=== PATIENT | female | born 1950 | race Caucasian/White ===

== ENCOUNTER → 2024-05-01 14:22 | Outpatient (REF) | payer OTHER, SELFPAY | LOC: RAD 14:22 | PROVIDERS: ATTENDING PHYSICIAN Nurse Practitioner Family | DX: M81.0 Age-related osteoporosis without current pathological fracture (principal) | CPT/HCPCS: 77080 ==

== ENCOUNTER 2024-08-18 08:29 | Emergency (ER) | payer OTHER, SELFPAY ==
--- NOTE | 2024-08-18 09:41 | ED.SKININJ ---
HPI-Injury
General
Chief Complaint: Bite
Source: patient
Time Seen by Provider: 08/18/24 09:35
History of Present Illness-Injury
Initial Injury comments:
74-year-old female presenting to the emergency department for evaluation after she was bit on the right wrist by her cat yesterday evening around 7 PM, had some mild bleeding which was controlled with light pressure and states clean the wound with a
hibclens. Patient states this morning she had a little bit of increased redness around the area where the bite took place and some discomfort. Patient states cats vaccinations are all up-to-date but she is unsure of her last tetanus. No other
injuries sustained.
Past History
Past History
ED Past Medical History: CAD, HTN, Hypercholesterolemia, Other (Osteoporosis, ) and Other (bradycardia)
ED Past Surgical History: Gynecological and Other (SBO, due to adhesions); Negative Appendectomy
Social History
Tobacco: Former smoker
Alcohol: Occasional
Drug: None
Personal:
Living: with family
Employment: Retired (Retired RN)
Family History
Family History: Other (Noncontributory)
Phy Exam
Physical Exam
Physical Exam:
GENERAL: Alert , in no apparent distress
EYE: conjunctiva clear
Head: Normocephalic atraumatic
NECK: Supple,
ENT: mmm.
LUNGS: no acute respiratory distress
NEUROLOGICAL: Alert and oriented
SKIN: Warm and dry, small puncture wound distal radial aspect right wrist with faint erythema surrounding
MUSCULOSKELETAL: well perfused. FROM wrist and elbow without difficulty
PSYCH: Normal and appropriate interaction.
Scores
Heart Failure Risk
Heart Failure Risk Score: Not Applicable
Heart Score for Chest Pain Patients
STEMI patient?: Not applicable
Withdrawal Assessment of Alcohol
Withdrawal Assessment Completed?: Not applicable
Course
Orders/Labs/Results
Orders:
Orders
08/18/24 09:41
Wound Dressing- Treatment ONCE
Location of Wound: right wrist
Amoxicillin 875 mg/Clav 125 mg [Augmentin 875 mg/125 mg] 1 tablet PO NOW STA
Tetanus/Diphth/Acelpertussis [Adacel] 0.5 ml IM .ONCE ONE
08/18/24 09:49
Acetaminophen [Tylenol] 650 mg PO NOW STA
Vital Signs
Initial and Last Documented VS:
Initial Vital Signs
Temp Pulse Resp Pulse Ox
98.0 F 60 18 96
08/18/24 08:31 08/18/24 08:31 08/18/24 08:31 08/18/24 08:31
Last Documented Vital Signs
Temp Pulse Resp BP Pulse Ox
98.0 F 60 18 118/68 97
08/18/24 08:31 08/18/24 11:01 08/18/24 11:01 08/18/24 11:01 08/18/24 11:01
MDM/Problems Addressed
Differential Diagnosis Includes:
cat bite/contusion, early cellulitis, no concern for septic joint
MDM/Problems Addressed:
74-year-old female presenting to the emergency department for evaluation of cat bite occurring to the right wrist yesterday evening around 7 PM. Patient this morning with mild pain and erythema to the affected area. Cats vaccines are up-to-date.
Will update patient's tetanus. Augmentin, Tylenol and wound care provided. 7-day course of Augmentin sent to patient's pharmacy. Discussed return precautions as well as wound care. Patient is otherwise stable for discharge home.
*Pulse Oximetry
Patient hypoxic: no
*Critical Care Note
Total Time (30-74mins, 75-104mins- exclusive of procedures): Not Applicable
ED Attending Note
-
Portions of this chart may have been created with voice recognition software.� Occasional wrong word or��sound alike� substitutions may have occurred due to the inherent limitations of voice recognition software.
Discharge Plan
Departure
Patient Disposition: Home (Routine Discharge)
Date of Disposition: 08/18/24
Time of Disposition: 09:42
Patient with high blood pressure during this ER visit?: No
Discharge Problem:
Cat bite of right wrist
Instructions: Animal Bites (DC)
Prescriptions:
New
amoxicillin-pot clavulanate 875-125 mg tablet
1 tab PO BID Qty: 13 0RF
No Action
Vitamin D-3
2,000 units PO DAILY
denosumab [Prolia] 60 MG/ML syringe
60 mg SQ .TWICEAYEAR
lorazepam 0.5 MG tablet
0.5 mg PO HS PRN (Reason: ANXIETY/SLEEP)
aspirin 81 MG tablet,delayed release (DR/EC)
81 mg PO DAILY Qty: 1 0RF
sennosides [Senna Laxative] 8.6 MG tablet
17.2 mg PO DAILY
docusate sodium 50 MG capsule
50 mg PO DAILY
citalopram 20 MG tablet
20 mg PO DAILY
omeprazole 20 MG capsule,delayed release(DR/EC)
20 mg PO DAILY
rosuvastatin 20 MG tablet
20 mg PO HS
fish oil-dha-epa 1 EACH capsule
1 cap PO DAILY
magnesium oxide 400 MG capsule
400 mg PO DAILY
acetaminophen 325 MG tablet
650 mg PO Q4HPRN PRN (Reason: mild pain,headache,temp >101F ) 0RF
metoprolol succinate 12.5 MG tablet extended release 24 hr
12.5 mg PO DAILY Qty: 30 3RF
furosemide [Lasix] 40 MG tablet
40 mg PO DAILY Qty: 7 1RF
potassium chloride [Klor-Con M20] 20 MEQ tablet,ER particles/crystals
20 meq PO DAILY Qty: 7 1RF
tramadol 50 MG tablet
25 mg PO Q6HPRN PRN (Reason: moderate-severe) Qty: 7 0RF
Rx Instructions:
Take 25 mg-cut tab in half
tramadol 50 MG tablet
25 mg PO Q6HPRN PRN (Reason: severe pain) Qty: 25 0RF
tramadol 50 MG tablet
50 mg PO Q6HPRN PRN (Reason: severe pain) Qty: 10 0RF
Referrals:
Silvina Rivera CRNP [Family Provider] -
Interventions
Interventions:
*Risk Screen - Suicide Last Done: 08/18/24 08:31
*General Assessment Last Done: 08/18/24 08:31
*Neglect/Abuse Screening Last Done: 08/18/24 08:31
ED- Fall Risk Assessment Last Done: 08/18/24 11:01
*ED COVID-19 Vaccine History Last Done: 08/18/24 08:31
*Nursing Disposition Last Done: 08/18/24 11:01
ED-Skin Assessment Last Done: 08/18/24 09:41
Discharge Date and Time
Discharge Date/Time: 08/18/24 10:40
Print Language: YI
[2024-08-18] MEDS: AUGMENTIN 875 MG/125 MG 1 TABLET PO (10:28)
[2024-08-18] MEDS: TYLENOL 650 MG PO (10:29)
[2024-08-18] MEDS: ADACEL 0.5 ML IM (10:31)
[2024-08-18 11:01] VITALS: BP 118/68
== END 2024-08-18 10:40 | disposition home or self-care (01) ==
LOC: EMR 08:29
PROVIDERS: EMERGENCY PHYSICIAN Emergency Medicine; FAMILY PHYSICIAN Nurse Practitioner Family
DX: S61.551A Open bite of right wrist, initial encounter (principal); W55.01XA Bitten by cat, initial encounter; Z23 Encounter for immunization; I25.10 Atherosclerotic heart disease of native coronary artery without angina pectoris; I10 Essential (primary) hypertension; E78.00 Pure hypercholesterolemia, unspecified; M81.0 Age-related osteoporosis without current pathological fracture; Z87.891 Personal history of nicotine dependence; Z90.49 Acquired absence of other specified parts of digestive tract
CPT/HCPCS: 99282; 90471; 90715

== ENCOUNTER → 2024-09-10 12:51 | Outpatient (REF) | payer OTHER, SELFPAY | LOC: WDC 12:51 | PROVIDERS: ATTENDING PHYSICIAN Obstetrics & Gynecology Gynecology; FAMILY PHYSICIAN Nurse Practitioner Family | DX: Z12.31 Encounter for screening mammogram for malignant neoplasm of breast (principal) | CPT/HCPCS: 77063; 77067 ==

== ENCOUNTER → 2024-12-24 09:08 | Outpatient (REF) | payer OTHER, SELFPAY | LOC: RCS 09:08 | PROVIDERS: ATTENDING PHYSICIAN Internal Medicine Cardiovascular Disease; FAMILY PHYSICIAN Nurse Practitioner Family | DX: I25.10 Atherosclerotic heart disease of native coronary artery without angina pectoris (principal); R53.82 Chronic fatigue, unspecified; R06.02 Shortness of breath; I10 Essential (primary) hypertension | CPT/HCPCS: 93306 ==

== ENCOUNTER → 2024-12-30 08:35 | Outpatient (REF) | payer OTHER, SELFPAY | LOC: HWRCS 08:35 | PROVIDERS: ATTENDING PHYSICIAN Internal Medicine Cardiovascular Disease; FAMILY PHYSICIAN Nurse Practitioner Family | DX: I25.10 Atherosclerotic heart disease of native coronary artery without angina pectoris (principal); R53.82 Chronic fatigue, unspecified; R06.02 Shortness of breath; I10 Essential (primary) hypertension | CPT/HCPCS: 78452; 93017; A9500 ==

== ENCOUNTER 2025-04-23 07:52 | Emergency (ER) | payer OTHER, SELFPAY ==
[2025-04-23 07:54] VITALS: BP 134/60
--- NOTE | 2025-04-23 08:09 | ED.SKININJ ---
HPI-Injury
General
Chief Complaint: Bite
Source: patient
Exam Limitations: none
Time Seen by Provider: 04/23/25 07:57
History of Present Illness-Injury
Initial Injury comments:
Note:
CHIEF COMPLAINT(S)
Bite wound to the left leg
HISTORY OF PRESENT ILLNESS
The patient is a 74-year-old female with no history of diabetes, presenting with a bite wound sustained from a cat yesterday. The patient mentioned developing localized erythema around the puncture wounds but denied any signs of systemic infection,
such as fever. She expressed concern about the potential need for stitches. The patient reported a previous significant allergic reaction to a high dose of an unspecified antibiotic earlier this year.
ADDITIONAL HISTORY OBTAINED FROM SOURCES OTHER THAN THE PATIENT
According to the patient, the cats vaccinations are up to date.
SOCIAL DETERMINANTS AFFECTING HEALTH
The patient reported significant family distress, including the loss of two daughters in 2019. One daughter had cancer, adding stress to the familys circumstances.
PHYSICAL EXAM
- Skin: Localized redness around puncture wounds on the left leg. No signs of infection spreading up the leg, 1.cm superficial laceration left leg
- Vital signs reviewed.
PLAN
Initiate treatment with amoxicillin-clavulanate (Augmentin) to address the cat bite infection. Educate the patient to monitor for increasing pain, swelling, red streaks, or fever.
DIFFERENTIAL DIAGNOSIS
The Differential Diagnosis includes, in no particular order and is not limited to:
1. Cat bite infection
2. Cellulitis
Past History
Past History
ED Past Medical History: CAD, HTN, Hypercholesterolemia, Other (Osteoporosis, ) and Other (bradycardia)
ED Past Surgical History: Gynecological and Other (SBO, due to adhesions); Negative Appendectomy
Social History
Tobacco: Former smoker
Alcohol: Occasional
Drug: None
Personal:
Living: with family
Employment: Retired (Retired RN)
Family History
Family History: Other (Noncontributory)
Phy Exam
Physical Exam
Physical Exam:
see above
Course
Orders/Labs/Results
Orders:
Orders
04/23/25 08:08
Amoxicillin 875 mg/Clav 125 mg [Augmentin 875 mg/125 mg] 1 tablet PO NOW STA
Vital Signs
Initial and Last Documented VS:
Initial Vital Signs
Temp Pulse Resp BP Pulse Ox
97.9 F 54 20 134/60 98
04/23/25 07:54 04/23/25 07:54 04/23/25 07:54 04/23/25 07:54 04/23/25 07:54
Last Documented Vital Signs
Temp Pulse Resp BP Pulse Ox
97.9 F 54 20 134/60 98
04/23/25 07:54 04/23/25 07:54 04/23/25 07:54 04/23/25 07:54 04/23/25 07:54
*Pulse Oximetry
SaO2: 98
Oxygen Mode of Delivery: Room air
Patient hypoxic: no
*Critical Care Note
Total Time (30-74mins, 75-104mins- exclusive of procedures): Not Applicable
ED Attending Note
-
Portions of this chart may have been created with voice recognition software.� Occasional wrong word or��sound alike� substitutions may have occurred due to the inherent limitations of voice recognition software.
Discharge Plan
Departure
Patient Disposition: Home (Routine Discharge)
Date of Disposition: 04/23/25
Time of Disposition: 08:14
Patient with high blood pressure during this ER visit?: No
Discharge Problem:
Cat bite
Instructions: Cellulitis (Skin Infection), Child (DC)
Prescriptions:
New
amoxicillin-pot clavulanate 875-125 mg tablet
1 tab PO BID Qty: 14 0RF
No Action
Vitamin D-3
2,000 units PO DAILY
denosumab [Prolia] 60 MG/ML syringe
60 mg SQ .TWICEAYEAR
lorazepam 0.5 MG tablet
0.5 mg PO HS PRN (Reason: ANXIETY/SLEEP)
aspirin 81 MG tablet,delayed release (DR/EC)
81 mg PO DAILY Qty: 1 0RF
sennosides [Senna Laxative] 8.6 MG tablet
17.2 mg PO DAILY
docusate sodium 50 MG capsule
50 mg PO DAILY
citalopram 20 MG tablet
20 mg PO DAILY
omeprazole 20 MG capsule,delayed release(DR/EC)
20 mg PO DAILY
rosuvastatin 20 MG tablet
20 mg PO HS
fish oil-dha-epa 1 EACH capsule
1 cap PO DAILY
magnesium oxide 400 MG capsule
400 mg PO DAILY
acetaminophen 325 MG tablet
650 mg PO Q4HPRN PRN (Reason: mild pain,headache,temp >101F ) 0RF
metoprolol succinate 12.5 MG tablet extended release 24 hr
12.5 mg PO DAILY Qty: 30 3RF
furosemide [Lasix] 40 MG tablet
40 mg PO DAILY Qty: 7 1RF
potassium chloride [Klor-Con M20] 20 MEQ tablet,ER particles/crystals
20 meq PO DAILY Qty: 7 1RF
tramadol 50 MG tablet
25 mg PO Q6HPRN PRN (Reason: moderate-severe) Qty: 7 0RF
Rx Instructions:
Take 25 mg-cut tab in half
amoxicillin-pot clavulanate 875-125 mg tablet
1 tab PO BID Qty: 13 0RF
tramadol 50 MG tablet
25 mg PO Q6HPRN PRN (Reason: severe pain) Qty: 25 0RF
tramadol 50 MG tablet
50 mg PO Q6HPRN PRN (Reason: severe pain) Qty: 10 0RF
Activity Restrictions/Additional Instructions:
Watch of infection including redness swelling pain streaks fever. Take antibiotic as directed
Interventions
Interventions:
*Risk Screen - Suicide Last Done: 04/23/25 07:54
Discharge Date and Time
Print Language: SOUTH AFR[place]
[2025-04-23] MEDS: AUGMENTIN 875 MG/125 MG 1 TABLET PO (08:36)
== END 2025-04-23 08:40 | disposition home or self-care (01) ==
LOC: EMR 07:52
PROVIDERS: EMERGENCY PHYSICIAN Emergency Medicine; FAMILY PHYSICIAN Nurse Practitioner Family
DX: S81.832A Puncture wound without foreign body, left lower leg, initial encounter (principal); W55.01XA Bitten by cat, initial encounter; I25.10 Atherosclerotic heart disease of native coronary artery without angina pectoris; I10 Essential (primary) hypertension; E78.00 Pure hypercholesterolemia, unspecified; M81.0 Age-related osteoporosis without current pathological fracture; Z87.891 Personal history of nicotine dependence; Z90.49 Acquired absence of other specified parts of digestive tract
CPT/HCPCS: 99283

== ENCOUNTER 2025-09-14 03:42 | Emergency (ER) | payer OTHER, SELFPAY ==
[2025-09-14 03:48] VITALS: BP 132/62
[2025-09-14 04:12] VITALS: BP 133/66
[2025-09-14 04:32] LABS: Hematocrit 40.2 % (37.0-47.0); Hemoglobin 13.1 g/dL (12.0-16.0); Mean Corp Hgb Conc. 32.6 g/dL (33.0-37.0); Mean Corpuscular Volume 84.6 fL (81.0-99.0); Nucleated Red Blood Cells % 0 %; Platelet Count 248 10^3/uL (130-400); Red Cell Dist. Width 14.2 % (11.5-14.5)
[2025-09-14 04:57] LABS: ALT (SGPT) 23 U/L (0-35); AST (SGOT) 29 U/L (14-36); Albumin 4.2 g/dl (3.5-5.0); Alkaline Phosphatase 67 U/L (38-126); Blood Urea Nitrogen 25 mg/dl (7-17); Calcium 10.5 mg/dl (8.4-10.2); Carbon Dioxide 25 mmol/L (22-30); Chloride 106 mmol/L (98-107); Glucose 90 mg/dl (70-99); Lipase 296 U/L (23-300); Potassium 4.2 mmol/L (3.5-5.1); Sodium 140 mmol/L (135-145); Total Protein 6.6 g/dl (6.3-8.2); eGFR > 60.00
[2025-09-14 05:01] VITALS: BP 133/65
[2025-09-14 05:09] LABS: Troponin I < 0.012 ng/ml
--- NOTE | 2025-09-14 05:22 | ED.GENMED ---
History of Present Illness
<Lg Hammer MD, Resident - Last Filed: 09/14/25 07:22>
General
Chief Complaint: Abdominal Symptoms
Time Seen by Provider: 09/14/25 04:55
History of Present Illness
History of Present Illness:
Patient is a 75-year-old female with PMH of CAD s/p CABG, GERD, HTN, HLD, and bradycardia presents to the [place] ED for acidic taste in her mouth and substernal burning that started at approximately 12:45 AM this morning. Patient was awoken
from sleep by an acidic fluid in her mouth, which was accompanied by substernal burning that was constant and nonradiating. Patient took 2 nitroglycerin 15 minutes apart soon after awakening, which provided mild relief. Patient has chronic GERD,
but this episode was different based on the amount of acidic fluid in her mouth. However, substernal burning was similar in character to prior episodes. No associated shortness of breath, palpitations, abdominal pain, N/V/D, weakness, numbness, or
vision changes. Patient had some indigestion after dinner last night, which prompted her to take Tums. Since arriving at the hospital, patient has developed a headache that she believes is related to lack of sleep.
Past History
<Lg Hammer MD, Resident - Last Filed: 09/14/25 07:22>
Past History
ED Past Medical History: CAD, HTN, Hypercholesterolemia, Other (Osteoporosis, ) and Other (bradycardia)
ED Past Surgical History: Gynecological and Other (SBO, due to adhesions); Negative Appendectomy
Social History
Tobacco: Former smoker
Alcohol: Occasional
Drug: None
Personal:
Living: with family
Employment: Retired (Retired RN)
Family History
Family History: Other (Noncontributory)
Review of Systems
<Lg Hammer MD, Resident - Last Filed: 09/14/25 07:22>
Review of Systems
Constitutional: Denies fever, fatigue or chills
Respiratory: Denies trouble breathing
Cardiac: Reports chest pain; Denies diaphoresis or palpitations
ABD/GI: Denies abdominal pain, nausea, vomiting or diarrhea
Neurological: Reports headache; Denies weakness or numbness
Phy Exam
<Lg Hammer MD, Resident - Last Filed: 09/14/25 07:22>
Physical Exam
Physical Exam:
General: NAD. Conversant.
HEENT: NCAT. EOMI.
CV: Mild bradycardia. Regular rhythm. No M/R/G. S1, S2 noted.
Pulm: CTAB. No wheezes or crackles. No cyanosis. Breathing comfortably.
GI: Soft, nontender. Nondistended.
Neuro: A&O x 3. NFD. CN II through XII grossly intact.
Course
<Lg Hammer MD, Resident - Last Filed: 09/14/25 07:22>
Orders/Labs/Results
Orders:
Orders
09/14/25 03:55
Electrocardiogram (*1) Urgent
Reason for Study: Abdominal Pain
EKG- Treatment ONCE
IV Insert/Care/Rem.- Treatment PRN
Urinalysis Reflex To Culture Urgent
Date Specimen was Collected: 09/14/25
Time Specimen was Collected: 03:55
09/14/25 04:02
Complete Blood Count/With Diff Urgent
Comprehensive Metabolic Panel Urgent
Lipase Urgent
Troponin I Urgent
09/14/25 05:30
Mag Hydrox/Al Hydrox/Simeth [Maalox] 30 ml Phenobarb/Hyoscy/Atropine/Scop [] 10 ml Viscous Lidocaine 2% [Xylocaine Viscous Cup] 10 ml PO NOW
Pantoprazole [Protonix IV] 40 mg IV NOW STA
09/14/25 05:39
Mag Hydrox/Al Hydrox/Simeth [Maalox] 30 ml .ROUTE .STK-MED ONE
Phenobarb/Hyoscy/Atropine/Scop [] 10 ml .ROUTE .STK-MED ONE
Viscous Lidocaine 2% [Xylocaine Viscous Cup] 15 ml .ROUTE .STK-MED ONE
09/14/25 05:59
Ribs, Right 3 View W/PA Chest [CR Ribs-right 3 Vw W/pa Chest*] Urgent
Comment:
Reason For Exam: fall 1 week ago-R lat rib injury-pain
09/14/25 06:01
Acetaminophen 1000MG/100Ml [Ofirmev] 1,000 mg in 100 ml IV ONCE
Acetaminophen IV Indication:: ED Narcotic Naive Pt-ONCE
09/14/25 06:58
Sucralfate Suspension [Carafate Suspension] 1 gm PO NOW STA
Abnormal Lab Results
09/14/25
04:02
MCHC 32.6 L g/dL
(33.0-37.0)
Absolute Monos (auto) 0.8 H 10^3/uL
(0.1-0.6)
Neutrophils % 41.5 L %
(42.2-75.2)
Monocytes % 11.6 H %
(1.7-9.3)
BUN 25 H mg/dl
(7-17)
Calcium 10.5 H mg/dl
(8.4-10.2)
09/14/25 04:02
09/14/25 04:02
Vital Signs
Initial and Last Documented VS:
Initial Vital Signs
Temp Pulse Resp BP Pulse Ox
97.7 F 53 20 132/62 97
09/14/25 03:48 09/14/25 03:48 09/14/25 03:48 09/14/25 03:48 09/14/25 03:48
Last Documented Vital Signs
Temp Pulse Resp BP Pulse Ox
97.7 F 47 12 133/54 96
09/14/25 03:48 09/14/25 06:30 09/14/25 06:30 09/14/25 06:00 09/14/25 06:30
<Alejandra Mendenhall DO - Last Filed: 09/14/25 07:21>
Orders/Labs/Results
Orders:
Orders
09/14/25 03:55
Electrocardiogram (*1) Urgent
Reason for Study: Abdominal Pain
EKG- Treatment ONCE
IV Insert/Care/Rem.- Treatment PRN
Urinalysis Reflex To Culture Urgent
Date Specimen was Collected: 09/14/25
Time Specimen was Collected: 03:55
09/14/25 04:02
Complete Blood Count/With Diff Urgent
Comprehensive Metabolic Panel Urgent
Lipase Urgent
Troponin I Urgent
09/14/25 05:30
Mag Hydrox/Al Hydrox/Simeth [Maalox] 30 ml Phenobarb/Hyoscy/Atropine/Scop [] 10 ml Viscous Lidocaine 2% [Xylocaine Viscous Cup] 10 ml PO NOW
Pantoprazole [Protonix IV] 40 mg IV NOW STA
09/14/25 05:39
Mag Hydrox/Al Hydrox/Simeth [Maalox] 30 ml .ROUTE .STK-MED ONE
Phenobarb/Hyoscy/Atropine/Scop [] 10 ml .ROUTE .STK-MED ONE
Viscous Lidocaine 2% [Xylocaine Viscous Cup] 15 ml .ROUTE .STK-MED ONE
09/14/25 05:59
Ribs, Right 3 View W/PA Chest [CR Ribs-right 3 Vw W/pa Chest*] Urgent
Comment:
Reason For Exam: fall 1 week ago-R lat rib injury-pain
09/14/25 06:01
Acetaminophen 1000MG/100Ml [Ofirmev] 1,000 mg in 100 ml IV ONCE
Acetaminophen IV Indication:: ED Narcotic Naive Pt-ONCE
09/14/25 06:58
Sucralfate Suspension [Carafate Suspension] 1 gm PO NOW STA
Abnormal Lab Results
09/14/25
04:02
MCHC 32.6 L g/dL
(33.0-37.0)
Absolute Monos (auto) 0.8 H 10^3/uL
(0.1-0.6)
Neutrophils % 41.5 L %
(42.2-75.2)
Monocytes % 11.6 H %
(1.7-9.3)
BUN 25 H mg/dl
(7-17)
Calcium 10.5 H mg/dl
(8.4-10.2)
09/14/25 04:02
09/14/25 04:02
Vital Signs
Initial and Last Documented VS:
Initial Vital Signs
Temp Pulse Resp BP Pulse Ox
97.7 F 53 20 132/62 97
09/14/25 03:48 09/14/25 03:48 09/14/25 03:48 09/14/25 03:48 09/14/25 03:48
Last Documented Vital Signs
Temp Pulse Resp BP Pulse Ox
97.7 F 47 12 133/54 96
09/14/25 03:48 09/14/25 06:30 09/14/25 06:30 09/14/25 06:00 09/14/25 06:30
<Lg Hammer MD, Resident - Last Filed: 09/14/25 07:22>
MDM/Problems Addressed
Differential Diagnosis Includes:
GERD
Myocardial infarction
Esophagitis
MDM/Problems Addressed:
Assessment: Patient is a 75-year-old female with PMH of CAD s/p CABG, bradycardia, HTN, HLD, and GERD who presents to the [place] ED with acidic fluid in her mouth and substernal, nonradiating, 'burning' chest pain that awoke her from sleep at
approximately 12:45 AM this morning. Mild improvement with nitroglycerin x 2. No associated shortness of breath, palpitations, N/V/D, or abdominal pain. Physical exam unremarkable. CBC, CMP unremarkable. Troponin negative. EKG shows sinus
bradycardia, otherwise unremarkable. Suspect GERD. Workup ongoing.
Plan:
#Chest pain
EKG
Labs: CBC, CMP, troponin, lipase, UA
Imaging: CXR
Pantoprazole for acid reflux
Maalox//viscous lidocaine for indigestion
Chronic conditions affecting care: CAD
<Lg Hammer MD, Resident - Last Filed: 09/14/25 07:22>
*Pulse Oximetry
SaO2: 98
Oxygen Mode of Delivery: Room air
Patient hypoxic: no
*Critical Care Note
Total Time (30-74mins, 75-104mins- exclusive of procedures): Not Applicable
ED Attending Note
<Lg Hammer MD, Resident - Last Filed: 09/14/25 07:22>
-
Portions of this chart may have been created with voice recognition software.� Occasional wrong word or��sound alike� substitutions may have occurred due to the inherent limitations of voice recognition software.
<Alejandra Mendenhall DO - Last Filed: 09/14/25 07:21>
ED Attending Note
Patient seen and examined by attending physician: Yes
I performed a history and physical exam of patient and discussed management with resident, I reviewed resident's note and agree with documented findings and plan of care.: Yes
ED Attending Note:
This is a 75-year-old woman with history of CAD, left main disease requiring CABG x 1�BROWN to LAD 2020. She also has history of GERD, chronically maintained on omeprazole 20 mg that she takes in the a.m.
She admits to eating pizza last night, extra red sauce and awoke at 00:45 with acute burning in her center rest as well as liquid in the back of her throat and in her mouth that was burning the back of her throat. Symptoms improved when she sat up
but persisted with posterior throat as well as substernal burning sensation that felt similar to previous episodes of acid reflux. She did take 2 sublingual nitroglycerin with minimal improvement. No associated shortness of breath nor nausea nor
vomiting, no abdominal pain, no back pain. She does admit to mild headache that developed after taking the nitroglycerin.
She also notes that 1 week ago, while playing pickle ball, she reached for a ball, slipped and landed on her right side. She has had some right lateral chest discomfort since then. No cough no shortness of breath.
75-year-old woman appears her stated age, awake and alert, pleasant, appears in no acute distress. is accompanying.
Heart is regular rate and rhythm.
Lungs are clear to auscultation. Mild tenderness right lateral chest wall without crepitus nor palpable bony abnormality.
Abdomen: Soft, nondistended, nontender. No CVA tenderness. No palpable masses.
Concern for acute exacerbation of GERD, ACS, musculoskeletal pain. I do not suspect the fall a week ago is related to current substernal chest pain but there is some concern for potential rib fracture thus will check chest x-ray and right rib
series.
Gastritis, cholecystitis, pancreatitis are less likely as abdomen is nontender.
EKG shows sinus bradycardia, no acute ST-T wave abnormalities And similar/unchanged from previous 2022.
Labs thus far are unremarkable including negative troponin.
With ongoing chest discomfort greater than 3 hours, unremarkable EKG and negative troponin, ACS is unlikely.
Will trial a GI cocktail and give an IV dose of Protonix. Check chest x-ray/right rib series.
07:10
Patient reports complete relief of chest pain after GI cocktail.
Chest x-ray/right rib series, initially reviewed by myself shows no evidence of rib fracture. Clear lung smith.
Will give an oral dose of Carafate for further esophageal protection and recommend she increase omeprazole 20 mg to twice daily dosing over the next 2 to 3 weeks then can resume once daily thereafter.
Discussed importance of maintaining a bland diet. Avoid red sauce, spicy or fried foods, alcohol, caffeine, chocolate.
Discharge Plan
Departure
Prescriptions:
No Action
Vitamin D-3
2,000 units PO DAILY
denosumab [Prolia] 60 MG/ML syringe
60 mg SQ .TWICEAYEAR
lorazepam 0.5 MG tablet
0.5 mg PO HS PRN (Reason: ANXIETY/SLEEP)
aspirin 81 MG tablet,delayed release (DR/EC)
81 mg PO DAILY Qty: 1 0RF
sennosides [Senna Laxative] 8.6 MG tablet
17.2 mg PO DAILY
docusate sodium 50 MG capsule
50 mg PO DAILY
citalopram 20 MG tablet
20 mg PO DAILY
omeprazole 20 MG capsule,delayed release(DR/EC)
20 mg PO DAILY
rosuvastatin 20 MG tablet
20 mg PO HS
fish oil-dha-epa 1 EACH capsule
1 cap PO DAILY
magnesium oxide 400 MG capsule
400 mg PO DAILY
acetaminophen 325 MG tablet
650 mg PO Q4HPRN PRN (Reason: mild pain,headache,temp >101F ) 0RF
metoprolol succinate 12.5 MG tablet extended release 24 hr
12.5 mg PO DAILY Qty: 30 3RF
furosemide [Lasix] 40 MG tablet
40 mg PO DAILY Qty: 7 1RF
potassium chloride [Klor-Con M20] 20 MEQ tablet,ER particles/crystals
20 meq PO DAILY Qty: 7 1RF
tramadol 50 MG tablet
25 mg PO Q6HPRN PRN (Reason: moderate-severe) Qty: 7 0RF
Rx Instructions:
Take 25 mg-cut tab in half
amoxicillin-pot clavulanate 875-125 mg tablet
1 tab PO BID Qty: 13 0RF
amoxicillin-pot clavulanate 875-125 mg tablet
1 tab PO BID Qty: 14 0RF
tramadol 50 MG tablet
25 mg PO Q6HPRN PRN (Reason: severe pain) Qty: 25 0RF
tramadol 50 MG tablet
50 mg PO Q6HPRN PRN (Reason: severe pain) Qty: 10 0RF
Referrals:
Silvina Rivera CRNP [Family Provider, Family Practice]
Interventions
Interventions:
*Risk Screen - Suicide Last Done: 09/14/25 03:48
*General Assessment Last Done: 09/14/25 03:48
*Neglect/Abuse Screening Last Done: 09/14/25 03:48
*ED- Fall Risk Assessment Last Done: 09/14/25 03:48
*ED COVID-19 Vaccine History Last Done: 09/14/25 03:48
*ED Influenza Vaccine History Last Done: 09/14/25 03:48
LA-Urkjwb-Wwjcaixaft Assessment Last Done: 09/14/25 04:10
Discharge Date and Time
Print Language: LAO
[2025-09-14] MEDS: MAALOX 50 PO (05:44)
[2025-09-14] MEDS: PROTONIX IV 40 MG IV (05:47)
[2025-09-14 06:00] VITALS: BP 133/54
[2025-09-14] MEDS: OFIRMEV 100 IV (06:15)
[2025-09-14] MEDS: CARAFATE SUSPENSION 1 GM PO (07:21)
== END 2025-09-14 07:29 | disposition home or self-care (01) ==
LOC: EMR 03:42
PROVIDERS: EMERGENCY PHYSICIAN Emergency Medicine; FAMILY PHYSICIAN Nurse Practitioner Family
DX: K21.00 Gastro-esophageal reflux disease with esophagitis, without bleeding (principal); I25.10 Atherosclerotic heart disease of native coronary artery without angina pectoris; I10 Essential (primary) hypertension; E78.00 Pure hypercholesterolemia, unspecified; M81.0 Age-related osteoporosis without current pathological fracture; Z87.891 Personal history of nicotine dependence; Z90.49 Acquired absence of other specified parts of digestive tract; Z95.1 Presence of aortocoronary bypass graft
CPT/HCPCS: 99283; 96374; 96375; 71101; 80053; 83690; 84484; 85025; 93005

== ENCOUNTER → 2025-09-18 15:37 | Outpatient (REF) | payer OTHER, SELFPAY | LOC: WDC 15:37 | PROVIDERS: ATTENDING PHYSICIAN Nurse Practitioner Family | DX: Z12.31 Encounter for screening mammogram for malignant neoplasm of breast (principal) | CPT/HCPCS: 77063; 77067 ==